=== PATIENT | female | born 1985 | race Two or more races ===

== ENCOUNTER 2017-03-18 08:14 | Day surgery (SDC) | payer OTHER ==
[~2017-03-18] VITALS: Ht 160 cm; Wt 55.0 kg
[~2017-03-18 08:14] MED LIST: CIPR500T4 PO; CYCL-319 PO; HYDR-3498 PO; IBUP-1542 PO
[2017-03-18 08:59] VITALS: Ht 160 cm; Wt 55.0 kg
[2017-03-18 09:19] VITALS: BP 113/60; PULSE 69; RESP 16
--- NOTE | 2017-03-18 09:48 | OPPN ---
Date/Time of Note Date/Time of Note DATE: 03/18/17 TIME: 09:47 Proc Note GI Procedure Date 03/18/17 Indication: diagnostic Pre-procedure Diagnosis Epigastric pain Post-procedure Diagnosis Gastritis Procedure Performed: Endoscopy Surgeon see signature line Mechanical Research Engineer none Anesthesia Type: moderate sedation Tourniquet Time none EBL none Transfusion required none Biopsy 1: 3 biopsies from stomach Grafts/Implants none Tubes/Drains none Complication(s) none Disposition: home Procedure Description Procedure dictated SKYLAR PUGH MD Mar 18, 2017 09:48
[2017-03-18] MEDS ORDERED: MIDAZOLAM 1 MG/ML 2 ML INJ ONE ×3 (10:05→10:06)
[2017-03-18] MEDS ORDERED: FENTAnyl 50 MCG/ML VIAL ONE (10:05)
--- NOTE | 2017-03-18 10:05 | GILP ---
DATE OF PROCEDURE: PROCEDURE: EGD to biopsy. INDICATION: A 32-year-old female undergoing this procedure for persistent epigastric pain. The ris k of the procedure, related and unrelated complications, anesthetic risks, alternatives discussed. Informed consent was obtained. DESCRIPTION OF PROCEDURE: The patient was brought to the GI lab, sedated with Versed 7 mg, fentanyl 100 mcg. After optimal sedation, scope was passed with much ease into esophagus which was grossly w ithin normal limits. Z line was at 35 cm. Stomach mucosa revealed gastritis. Three biopsies obtai nasrin to rule out H. pylori infection. Duodenum, first and second part including the ampulla appeared normal. Retroversion also was normal. Scope was straightened out and removed with good patient to lerance. IMPRESSION: 1. Normal esophagus. 2. Z line at 35 cm. 3. Gastritis. 4. Normal duodenum and ampulla. PLAN: Review histopathology. Dictated By: SKYLAR JACKSON/SAVANNA Conf#: [id number] DID#: [id number] CC: Gregorio Winkler;*EndCC*
[2017-03-18 10:11] VITALS: BP 103/57; RESP 16
== END 2017-03-18 10:25 | disposition home or self-care (01) ==
LOC: GIL 08:14
PROVIDERS: ATTEND Internal Medicine Gastroenterology
DX: K29.70 Gastritis, unspecified, without bleeding (principal)
CPT/HCPCS: 43239; 84703; 88305; 88312; J2250; J3010; Z7610